=== PATIENT | female | born 1990 | race Hispanic/Latino ===

== ENCOUNTER 2019-05-15 17:53 | Inpatient (IN) | payer MEDICAID ==
[2019-05-15] MEDS ORDERED: ONDANSETRON INJ 4 MG/2 ML VIAL IV ONE (18:53)
[2019-05-15] MEDS ORDERED: SODIUM CHLORIDE 0.9% (FLUSH) 10 ML SYG IV PRN ×2 (18:53→22:07)
[2019-05-15] MEDS ORDERED: fentaNYL CITRATE INJ 50 MCG/ML AMP IV ONE ×2 (19:06→22:00)
[2019-05-15] MEDS ORDERED: PIPERACILLIN/TAZOBACTAM 4.5 GM in SODIUM CHLORIDE 0.9% 100ML 100 ML IVPB ONE (21:04)
--- NOTE | 2019-05-15 21:31 | ED.PDOC ---
History of Present Illness - General Chief Complaint: Abdominal Pain Stated Complaint: gall stones Time Seen by Provider: 05/15/19 18:53 Information Source: patient, RN notes reviewed, Vital Signs reviewed, old records Exam Limitations: no limitations - History of Present Illness Initial Comments: Patient is a 29-year-old female who presents with complaints of right upper quadrant abdominal pain. It started 24 hours ago and is worsened significantly. She was seen at the clinic today who sent her to the hospital for an ultrasound which showed that she had gallstones. The pain is sharp and stabbing in nature, it is worse when she eats, nothing makes it better. It is severe in intensity. It is constant but waxing and waning in intensity. The pain does not radiate. Patient denies any headache, dizziness, chest pain, shortness of breath, diarrhea. She does complain of nausea, but no vomiting. Abdominal Pain Onset Location: RUQ Pain Radiation: no radiation Quality: severe, sharpness, stabbing Timing/Duration: 7-24 hours Improving Factors: nothing Worsening Factors: eating Associated Symptoms: nausea/vomiting - Nausea only Review of Systems - Review of Systems Constitutional: States: see HPI. Denies: chills, fever EENTM: States: no symptoms reported. Denies: blurred vision, double vision Respiratory: States: no symptoms reported. Denies: cough, short of breath, stridor, wheezing Cardiology: States: no symptoms reported. Denies: chest pain, palpitations, syncope Gastrointestinal/Abdominal: States: see HPI, abdominal pain, nausea. Denies: constipation, diarrhea, vomiting Genitourinary: States: no symptoms reported. Denies: discharge, dysuria, frequency Musculoskeletal: States: no symptoms reported. Denies: back pain, joint pain, neck pain Skin: States: no symptoms reported. Denies: change in color, rash Neurological: States: no symptoms reported. Denies: headache, tingling, tremors, weakness Endocrine: States: no symptoms reported Hematologic/Lymphatic: States: no symptoms reported All other Systems: Reviewed and Negative Past Medical History (General) - Patient Medical History Hx Congestive Heart Failure: No Hx Diabetes: No Hx Renal Disease: No Hx Cancer: No Hx Hepatitis C: No Hx MRSA: No - Vaccination History Hx Tetanus, Diphtheria Vaccination: No Hx Influenza Vaccination: No Hx Pneumococcal Vaccination: No - Social History Hx Tobacco Use: No Hx Alcohol Use: No Hx Substance Use: No Hx Substance Use Treatment: No Hx Depression: No - Female History Patient is a Female of Child Bearing Age (10 -59 yrs old): No Hx Last Menstrual Period: 01/14/12 Patient : No Expected Date of Delivery:: 10/22/13 Family Medical History - Family History Mother Name: Dee Tripp Age (years): 50 Living Status: Still Living Hx Family Asthma: No Hx Family Congestive Heart Failure: No Hx Family Hypertension: Yes Hx Family Stroke: No Hx Family Diabetes: No Hx Family Cancer: No Father Name: Ang Cardoza Age (years): 48 Living Status: Still Living Hx Family Hypertension: Yes Hx Family Diabetes: Yes - aunt Hx Family Cancer: Yes - aunt, grandmother Sister Name: Romi Age (years): 27 Living Status: Still Living Hx Family Asthma: No Hx Family Congestive Heart Failure: No Hx Family Hypertension: No Hx Family Stroke: No Hx Family Diabetes: No Hx Family Cancer: No Hx Family;Other: Rheumatoid Arthritis Brother Name: Ang Cardoza Jr. Age (years): 29 Living Status: Still Living Hx Family Asthma: No Hx Family Congestive Heart Failure: No Hx Family Hypertension: No Hx Family Stroke: No Hx Family Diabetes: No Hx Family Cancer: No Physical Exam - Physical Exam General Appearance: Alert, Anxious, Obvious distress, Obese, Well Developed, Well Groomed, Well Hydrated, Well Nourished Eyes, Ears, Nose, Throat Exam: PERRL/EOMI, normal ENT inspection, pharynx normal Neck: non-tender, full range of motion, supple Respiratory: chest non-tender, lungs clear, normal breath sounds, no respiratory distress Cardiovascular/Chest: normal peripheral pulses, regular rate, rhythm, no edema, no gallop, no murmur Peripheral Pulses: No deficit Gastrointestinal/Abdominal: normal bowel sounds, soft, tenderness - Right upper quadrant Back Exam: normal inspection, no CVA tenderness, no vertebral tenderness Extremity: normal range of motion, non-tender, normal inspection, no pedal edema, no calf tenderness 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 05/15/19 21:33 Patient's pain has improved after pain medication. I have discussed with her the need for definitive operative care. She voices understanding and agreement with admission for operative intervention. I have discussed this patient with Dr. De Leon, and he agrees to see her in consultation and plans on taking her to the OR tomorrow. I have started antibiotics on this patient. I have also discussed this patient with Dr. Suleiman Moreno and he accepts the patient for admission. Porfirio Gillis M.D. #[id number] - Results/Orders Results/Orders: 05/15/19 18:53 IV Care:Saline Lock per Protoc QSHIFT Sodium Chloride 0.9% (Flush) [Saline Flush Syringe] 10 ml IV PRN PRN 05/15/19 19:00 EKG STAT 05/15/19 21:04 Piperacillin/Tazobactam [Zosyn] 4.5 gm Sodium Chloride 0.9% 100Ml [NS (NACL 0.9%) 100ml] 100 ml IVPB ONCE 05/15/19 21:30 Piperacillin/Tazobactam [Zosyn] 3.375 gm Sodium Chloride 0.9% 100Ml [NS (NACL 0.9%) 100ml] 100 ml IVPB Q8H Laboratory Results - last 24 hr 05/15/19 05/15/19 05/15/19 19:05 19:05 19:05 WBC 6.3 RBC 4.44 Hgb 14.7 Hct 42.8 MCV 96.3 MCH 33.2 H MCHC 34.4 RDW 13.1 Plt Count 260 MPV 9.8 Absolute Neuts (auto) 5.00 Absolute Lymphs (auto) 0.80 L Absolute Monos (auto) 0.30 Absolute Eos (auto) 0.10 Absolute Basos (auto) 0.00 Neutrophils % 79.6 H Lymphocytes % 13.4 L Monocytes % 5.0 Eosinophils % 1.6 Basophils % 0.4 Sodium 139 Potassium 3.9 Chloride 100 L Carbon Dioxide 30 Anion Gap 12.9 BUN 8 Creatinine 0.68 BUN/Creatinine Ratio 11.8 Random Glucose 95 Serum Osmolality 275.7 Calcium 9.8 Total Bilirubin 2.0 H Direct Bilirubin 1.3 H Indirect Bilirubin 0.7 AST 234 H ALT 160 H Alkaline Phosphatase 355 H Serum Total Protein 7.9 Albumin 3.9 Lipase Serum HCG, Qual Urine Color Urine Appearance Urine pH Ur Specific [place] Urine Protein Urine Glucose (UA) Urine Ketones Urine Blood Urine Nitrite Urine Bilirubin Urine Urobilinogen Ur Leukocyte Esterase Urine RBC Urine WBC Ur Epithelial Cells Urine Bacteria 05/15/19 05/15/19 05/15/19 19:05 19:05 20:10 WBC RBC Hgb Hct MCV MCH MCHC RDW Plt Count MPV Absolute Neuts (auto) Absolute Lymphs (auto) Absolute Monos (auto) Absolute Eos (auto) Absolute Basos (auto) Neutrophils % Lymphocytes % Monocytes % Eosinophils % Basophils % Sodium Potassium Chloride Carbon Dioxide Anion Gap BUN Creatinine BUN/Creatinine Ratio Random Glucose Serum Osmolality Calcium Total Bilirubin Direct Bilirubin Indirect Bilirubin AST ALT Alkaline Phosphatase Serum Total Protein Albumin Lipase 21 L Serum HCG, Qual Negative Urine Color Yellow Urine Appearance Cloudy Urine pH 5.5 Ur Specific [place] 1.025 Urine Protein Negative Urine Glucose (UA) Negative Urine Ketones Negative Urine Blood Trace-lysed H Urine Nitrite Negative Urine Bilirubin Moderate Urine Urobilinogen 1.0 Ur Leukocyte Esterase Negative Urine RBC 0 Urine WBC 1-3 Ur Epithelial Cells 5-10 Urine Bacteria 1+ Ultrasound shows stones in the gallbladder without distention or pericholecystic fluid. The common bile duct is 6.7 mm. Departure - Departure Clinical Impression: Cholecystitis, Elevated liver function tests Time of Disposition: 21:37 Disposition: Admit Patient Condition: Good Departure Forms: Patient Portal Self Enrollment Referrals: PAT COOPER,MAHNAZ Thomson [Primary Care Provider] - 1-2 Weeks Decision To Admit - Decistion To Admit Decision to Admit Reason: Admit from ER Decision to Admit Date: 05/15/19 Decision to Admit Time: 20:40
--- NOTE | 2019-05-15 21:53 | HP ---
CHIEF COMPLAINT: Abdominal pain from gallstones. HISTORY OF PRESENT ILLNESS: Ms. Cardoza is a 29-year-old female who was seen in the Urgent Care last week with right upper quadrant abdominal pain. A sonogram of her abdomen was ordered as an outpatient and that study was done this morning. The report was called to the nurse practitioner at the Urgent Care and the message was relayed to the patient that she had lots of gallstones. The patient was instructed to come to the Emergency Room if she started having severe abdominal pain. Within about four hours, the patients had significantly worsened pain in the right upper quadrant with nausea and vomiting. Because of the GI distress and the ongoing pain that would not stop, she decided to come to the Emergency Room for evaluation. In the Emergency Room, her liver enzymes are over 100 and she was found to have a positive Ferraro's sign on examination in the ER. The patient was given some IV fentanyl which initially helped with her pain, but the pain has since returned. The surgeon, Dr. Knight, was contacted by the Emergency Room physician and the decision was made to admit the patient for IV antibiotics tonight and to get her prepared for surgery tomorrow morning. The plan will be to do a laparoscopic cholecystectomy with intraoperative cholangiogram. The patient is aware of the plan and is willing to move in that direction starting tonight. REVIEW OF SYSTEMS: CONSTITUTIONAL: No recent fevers, chills. HEENT: No head congestion or sore throat. CARDIOVASCULAR: No chest pains or palpitations. PULMONARY: No shortness of breath or cough. GASTROINTESTINAL: As above, no constipation, diarrhea, melena or reflux. GENITOURINARY: No dysuria or hematuria. NEUROLOGIC: No headache or dizziness. HEMATOLOGIC: No bleeding tendencies or easy bruising. PAST MEDICAL HISTORY: Negative. PAST SURGICAL HISTORY: 1. section. 2. Bilateral tubal ligation. CURRENT MEDICATIONS: None. ALLERGIES: NO KNOWN DRUG ALLERGIES. SOCIAL HISTORY: She smokes cigarettes, but she does not consume alcohol or use illicit drugs. FAMILY HISTORY: Noncontributory. PHYSICAL EXAMINATION: VITAL SIGNS: Temperature 99.8. Pulse 115. Blood pressure 105/60. Pulse oximetry 99% on room air. GENERAL: The patient is crouched next to the bed in a squatted position due to the pain. She withers back and forth and grimaces with pain during the interview. HEENT: No scleral icterus. Oropharynx clear. Mucous membranes are dry. NECK: Supple. No adenopathy. CHEST: Clear to auscultation. CARDIOVASCULAR: Regular rate and rhythm without murmur. ABDOMEN: Soft, nondistended. It is obese. She does have right upper quadrant abdominal pain and I do not appreciate a Ferraro's sign, however, she was given two doses of fentanyl before I saw her. NEUROLOGIC: No focal motor or sensory deficits. LABORATORY: White count 6.3, hemoglobin 14.7, hematocrit 42.8, platelet count 260. Sodium 139, potassium 3.9, chloride 100, carbon dioxide 30, BUN 8, creatinine 0.68, total bilirubin 2, AST 234, ALT 160, lipase 21. Serum test negative. Urinalysis negative. RADIOLOGY: Abdominal ultrasound shows numerous gallstones, slightly dilated common bile duct at 6.7 mm. ASSESSMENT: 1. Acute cholecystitis, failed outpatient treatment. PLAN: The patient will be admitted to the hospital. She was started on IV Zosyn in the Emergency Room and that will be continued. She of course if NPO. I will use morphine for pain control and Zofran for nausea and vomiting. Surgical consult from will be obtained first thing in the morning with anticipation that she would have her gallbladder removed on 05/16/19. It is likely she will need to be in the hospital for a night or two afterwards given the higher elevation of her liver enzymes, however, we will repeat those in the morning and make an assessment at that time and see how her cholangiogram looks and what Dr. Knight's impression of the case is after surgery. #[id number] [facility]
[2019-05-15] MEDS ORDERED: PIPERACILLIN/TAZOBACTAM 3.375 GM VIAL IVPB ONE (22:02)
[2019-05-15] MEDS ORDERED: SODIUM CHLORIDE 0.9% 100ML 100 ML IVPB ONE (22:02)
[2019-05-15] MEDS: PIPERACILLIN/TAZOBACTAM 3.375 GM in SODIUM CHLORIDE 0.9% 100ML 100 ML IVPB SCH (22:06)
[2019-05-15] MEDS ORDERED: ONDANSETRON INJ 4 MG/2 ML VIAL IV PRN (22:07)
[2019-05-15] MEDS ORDERED: IV SET AND CAP CHANGE INJ INJ SCH (22:30)
--- NOTE | 2019-05-15 22:46 | RAD ---
EXAM DESCRIPTION: Chest,1 View CLINICAL HISTORY: 29 years Female epigastric pain COMPARISON: None. FINDINGS: The cardiomediastinal silhouette appears unremarkable. No consolidating infiltrates or pleural effusions. No pneumothorax. IMPRESSION: No acute abnormality is identified. * Electronically signed by: Lynn Moncada MD 05/15/2019 10:44 PM [facility]
[2019-05-16] MEDS: MORPHINE SULFATE INJ 10 MG/ML VIAL IV PRN ×5 (00:11→22:25)
[2019-05-16] MEDS: LACTATED RINGERS 1,000 ML IVS PRN ×3 (00:11→23:20)
[2019-05-16] MEDS ORDERED: SODIUM CHLORIDE 0.9% 100ML 100 ML IVPB ONE ×3 (04:56→19:07)
[2019-05-16] MEDS ORDERED: PIPERACILLIN/TAZOBACTAM 3.375 GM VIAL IVPB ONE ×3 (04:56→19:07)
[2019-05-16] MEDS: PIPERACILLIN/TAZOBACTAM 3.375 GM in SODIUM CHLORIDE 0.9% 100ML 100 ML IVPB SCH ×3 (05:04→21:21)
[2019-05-16] MEDS ORDERED: LACTATED RINGERS 1,000 ML ONE (08:33)
[2019-05-16] MEDS ORDERED: BUPIVACAINE 0.5% W/EPI 30 ML VIAL INJ ONE ×2 (13:57→16:28)
[2019-05-16] MEDS ORDERED: KETAMINE HCL 100 MG/ML VIAL ONE (16:19)
[2019-05-16] MEDS ORDERED: fentaNYL CITRATE INJ 50 MCG/ML AMP ONE (16:20)
[2019-05-16] MEDS ORDERED: ROCURONIUM BROMIDE 10 MG/ML VIAL ONE (16:20)
[2019-05-16] MEDS ORDERED: MIDAZOLAM INJ 2 MG/2 ML VIAL ONE (16:20)
[2019-05-16] MEDS ORDERED: SUGAMMADEX SODIUM 200 MG/2 ML VIAL IV ONE (16:27)
[2019-05-16] MEDS ORDERED: ELECTROLYTE-A 1,000 ML IVS ONE (16:27)
[2019-05-16] MEDS ORDERED: MEPERIDINE HCL 50 MG/ML VIAL ONE (19:08)
--- NOTE | 2019-05-16 19:31 | OP ---
DATE OF PROCEDURE: 05/16/19 PREOPERATIVE DIAGNOSIS: 1. Acute cholecystitis. POSTOPERATIVE DIAGNOSIS: 1. Acute cholecystitis. PROCEDURE: 1. Laparoscopic cholecystectomy with cholangiogram, difficult case modified with extreme inflammation and added difficulty of the case. SURGEON: Serg Knight MD. ANESTHESIA: General and local. FINDINGS: The gallbladder was tense, thick walled. The cystic duct was extremely large with no tapering at the common bile duct. Cholangiogram revealed normal appearing anatomy without flow through the distal duct into the duodenum. No obvious meniscus, but her labs indicate likely common duct stone. ESTIMATED BLOOD LOSS: Minimal. SPECIMEN: Gallbladder. The cystic duct needed to be ligated with an Endoloop. COMPLICATIONS: None. PLAN: Admit. MRCP. Followup liver function tests and likely refer for ERCP. INDICATION: As stated. PROCEDURE: General anesthesia was induced. The patient was prepped and draped in sterile fashion. Marcaine 0.5% with epinephrine was used at all incision sites. While maintaining upward traction, a david was made near the base of the umbilicus. Veress needle was introduced. There was free flow of fluid into the peritoneal cavity which was insufflated to an appropriate level with CO2 gas. The 5 mm trocar was placed followed by the camera. There was no evidence of bleeding or bowel injury. The patient was positioned and subxiphoid and lateral ports were placed. The gallbladder fundus was identified. It was very thick walled. We were unable to grasp it. I needed to put an otomy in it and aspirate the gallbladder out to decompress it so we could grasp it with the grasper and retract it and dissect the infundibulum was grasped. We dissected the peritoneum lateral and medial structures and we were unable to dissect out the duct. I was able to dissect out the artery, but the duct itself was extremely large and dissected down, it appeared first that the duodenum might be stuck to it, but indeed this was adjunctive to the common bile duct. There was no tapering. At this point, it was decided rather than open, we would do a top- down dissection and get a better view of the anatomy, so we did that and came from top down. I got one otomy into the gallbladder, just retrieved the stones, none were missing. As we got down to the infundibulum, the anatomy was still clear as we thought before. I made a hole in the gallbladder medially and put in a cholangiogram and was able with a little bit of extravasation to get a good cholangiogram, but on multiple attempts, there was no evidence of flow into the duodenum, consistent with the obstructing distal common duct stone. We then ligated the gallbladder that we knew that we had at least 2 cm of distal gallbladder before the common bile duct. It was ligated and removed in the EndoCatch bag. We then used the 0 Endoloop to ligate the cystic duct stump. This was done successfully. The area was irrigated. There was no bleeding, no evidence of bile leakage. The fossa was examined. It was also hemostatic. At this point, all the irrigant was clear. We made sure all the spilled stones were removed. There was no evidence of additional stones. The subxiphoid fascia was then closed with 0 Vicryl using the suture passer. It was airtight and non-bleeding. The remaining trocars were removed. There was no bleeding from the trocar sites. The wounds were irrigated and closed with Monocryl. Dressings were applied. The patient was awakened and taken to Recovery in stable condition. Again, we will get an MRCP as well as morning labs to confirm the presence of common bile duct stone and likely referral for ERCP. #[id number] [facility]
[2019-05-17] MEDS: MORPHINE SULFATE INJ 10 MG/ML VIAL IV PRN ×2 (03:32→08:38)
[2019-05-17] MEDS ORDERED: PIPERACILLIN/TAZOBACTAM 3.375 GM VIAL IVPB ONE ×3 (04:20→19:35)
[2019-05-17] MEDS ORDERED: SODIUM CHLORIDE 0.9% 100ML 100 ML IVPB ONE ×3 (04:20→19:35)
[2019-05-17] MEDS: PIPERACILLIN/TAZOBACTAM 3.375 GM in SODIUM CHLORIDE 0.9% 100ML 100 ML IVPB SCH ×3 (04:42→21:11)
[2019-05-17] MEDS ORDERED: KETOROLAC TROMETHAMINE INJ 30 MG/ML VIAL ONE (07:00)
[2019-05-17] MEDS ORDERED: PROPOFOL 200 MG/20 ML VIAL IV ONE (07:00)
[2019-05-17] MEDS ORDERED: DEXAMETHASONE INJ 10 MG/ML VIAL ONE (07:00)
[2019-05-17] MEDS ORDERED: MAGNESIUM SULFATE INJ 1 GM/2 ML VIAL ONE (07:00)
[2019-05-17] MEDS ORDERED: raNITIdine HCL INJ 25 MG/ML VIAL ONE (07:00)
[2019-05-17] MEDS ORDERED: SODIUM CHLORIDE 0.9% 50 ML VIAL ONE (07:00)
[2019-05-17] MEDS ORDERED: LIDOCAINE 1% 10 ML VIAL INJ ONE (07:00)
--- NOTE | 2019-05-17 07:12 | RAD ---
EXAM: FL LESS THAN 1 HOUR DATE: 05/16/2019 Ordering provider: Serg Knight MD CLINICAL INDICATION: LAP TAMI WITH IOC COMPARISON: 05/15/2019 abdominal ultrasound FINDINGS: 2 intraoperative fluoroscopic images were submitted for review. Images demonstrate opacification of the common bile duct. No definite filling defects or strictures identified. Please refer to operative report for details. Fluoroscopy time: 38 seconds IMPRESSION: Intraoperative fluoroscopy. Electronically signed by: Alex Soliz MD 05/17/2019 7:07 AM [facility]
--- NOTE | 2019-05-17 11:11 | MRI ---
EXAM DESCRIPTION: Abdomen CLINICAL HISTORY: 29 years Female, MRCP abdominal pain COMPARISON: Ultrasound May 15, 2019 TECHNIQUE: Multiplanar, multisequence MR images of the abdomen are obtained without IV gadolinium contrast using MRCP imaging protocol. Three-D MIP reconstructed images of the biliary ductal system are obtained. FINDINGS: Surgical absence of the gallbladder. Increased T2 signal in the gallbladder fossa is seen with focal area of fluid signal in the gallbladder fossa measuring 17 x 14 mm. No intra or extrahepatic biliary ductal dilatation. No filling defects in the common bile duct are seen. The distal common bile duct measures 6 mm. No pancreatic duct dilatation or pancreas divisum is identified. The remnant cystic duct is unremarkable. Liver is mildly enlarged at 17.3 cm. No focal hepatic lesion. The spleen, pancreas, adrenal glands, and kidneys are unremarkable. No pathologic lymphadenopathy. Bilateral basilar infiltrates are seen in the visualized lung bases. Small amount of free intraperitoneal air is seen over the right lobe of the liver. IMPRESSION: Postsurgical changes from recent cholecystectomy are seen. Increased T2 signal and small amount of fluid in the gallbladder fossa could represent postop hematoma or seroma. No significant ascites is seen to suggest biliary leak. No MRCP evidence of choledocholithiasis or biliary tract obstruction. Bilateral lower lobe atelectasis versus developing pneumonia or aspiration. Electronically signed by: Marvin David MD 05/17/2019 11:09 AM [facility]
[2019-05-17] MEDS ORDERED: ACETAMINOPHEN W/COD #3 TAB 1 EA TAB PO PRN (14:09)
[2019-05-17] MEDS ORDERED: IBUPROFEN 200 MG TAB ONE (14:20)
[2019-05-17] MEDS ORDERED: IBUPROFEN 200 MG TAB PO PRN (14:23)
[2019-05-17] MEDS: traMADol HCL 50 MG TAB PO PRN ×2 (15:00→21:11)
--- NOTE | 2019-05-17 16:48 | PN ---
SUPERVISING PHYSICIAN: Eb Kirk MD DATE: 05/16/19 SUBJECTIVE: The patient has just come back from surgery. She is fairly lethargic. Her family is at the beside. She has no complaints at this time. I discussed with her family our plans over the next several days. OBJECTIVE: VITAL SIGNS: Temperature 96.7, heart rate 70, blood pressure 97/63, respiratory rate 19, oxygen saturation 95% on a face vent. RESPIRATORY: Essentially clear to auscultation bilaterally. CARDIAC: Regular rate and rhythm. ABDOMEN: Soft, nondistended. It is tender, especially along the epigastric and right upper quadrant. Bowel sounds are absent. She does have laparoscopic incision just to the epigastric area as well as to the right upper quadrant, with Steri-Strips. There are no signs or symptoms of problems, no excess bleeding. NEURO: She is lethargic, she opens her eyes. She answers simple questioning. LABORATORY: Preoperative laboratory was WBC of 4.9 with hemoglobin of 13.3 and hematocrit of 39.5. Chemistries were basically within normal limits. Bilirubin was elevated at 2.8 with an AST of 180, ALT of 162, alkaline phosphatase of 311. Amylase 41, lipase 22. All other labs and films have been reviewed via the EMR. ASSESSMENT: 1. Acute cholecystitis failed outpatient treatment status post cholecystectomy, postoperative day #0. 2. Elevated liver enzymes most likely secondary to #1. PLAN: We will continue present supportive care. Operative issues will be per Dr. Knight. He has ordered an MRCP for in the morning depending on her lab work as well as the results of that test, we may or may not transfer her to another facility for an ERCP. At this point, we will advance her diet as tolerated. Dr. Knight has covered her for her pain medication. We will continue to monitor closely and follow as needed. #[id number] [facility]
[2019-05-18 04:00] VITALS: O2SAT 96
[2019-05-18] MEDS ORDERED: PIPERACILLIN/TAZOBACTAM 3.375 GM VIAL IVPB ONE (04:45)
[2019-05-18] MEDS ORDERED: SODIUM CHLORIDE 0.9% 100ML 100 ML IVPB ONE (04:45)
[2019-05-18] MEDS: PIPERACILLIN/TAZOBACTAM 3.375 GM in SODIUM CHLORIDE 0.9% 100ML 100 ML IVPB SCH (05:12)
[2019-05-18 11:26] VITALS: BP 121/75; TEMP 98.1
--- NOTE | 2019-05-18 13:56 | PN ---
SUPERVISING PHYSICIAN: Eb Kirk MD DATE: 05/17/19 SUBJECTIVE: The patient is sitting in bed. She has complained of pain off and on all day except she does not like to take pain medications. She denies any shortness of breath, nausea or vomiting. OBJECTIVE: VITAL SIGNS: Temperature 97.1. Heart rate 68. Blood pressure 111/64. Respiratory rate 16. O2 saturation 92% on 2 liters nasal cannula. RESPIRATORY: Essentially clear to auscultation bilaterally. CARDIAC: Regular rate and rhythm. ABDOMEN: Soft, nondistended. It is mildly tender, especially in the epigastric and right upper quadrant areas. There is no rebound tenderness. Her dressings to her laparoscopic surgical incisions are dry and intact. There are no signs or symptoms of bleeding or other problems. NEUROLOGIC: Awake, alert and oriented x3. LABORATORY: WBCs 6.9, hemoglobin 12.7, hematocrit 37.1. Electrolytes are mostly within normal limits except calcium slightly low at 8.1. Bilirubin is 4.1. AST 171, ALT 193, alkaline phosphatase 377. Total protein 6.2. RADIOLOGY: Her MRCP shows no MRCP evidence of choledocholithiasis or biliary tract obstruction. All other labs and films have been reviewed via the EMR. ASSESSMENT: 1. Acute cholecystitis failed outpatient treatment status post cholecystectomy, postoperative day #1. 2. Elevated liver enzymes most likely secondary to #1. PLAN: We will continue present supportive care. Operative issues will be per Dr. Serg Knight. His plan after seeing the results of the MRCP was to keep her overnight and to followup with GI specialist tomorrow. He also wanted a repeat of her bilirubin. If the bilirubin did go up, he will most likely transfer her for an ERCP. At this point, he wants us to advance her diet as tolerated and to increase her activity as tolerated. The patient has not wanted to get out of bed, so we have encouraged her to do so. I explained to her about postoperative complications of not getting up and moving including pneumonia. If she does not get up and walk the halls more frequently, we will have to order some more aggressive pulmonary hygiene. Otherwise, we will continue to monitor the patient closely and follow as needed. #[id number] [facility]
--- NOTE | 2019-05-23 14:03 | DS ---
SUPERVISING PHYSICIAN: Eb Kirk MD DISCHARGE DIAGNOSIS: 1. Acute cholecystitis failed outpatient treatment status post cholecystectomy, postoperative day #2. 2. Elevated liver enzymes most likely secondary to #1. HISTORY OF PRESENT ILLNESS: This is a 29-year-old female patient who was seen in the Urgent Care the previous week with right upper quadrant abdominal pain. A sonogram of her abdomen was ordered as an outpatient and that study was done the morning of her admission. The message was relayed that the patient had lots of gallstones. The patient was instructed to come to the Emergency Room if she started having severe abdominal pain. Within about four hours, the patient had significantly worsened pain in the right upper quadrant with nausea and vomiting. She came to the Emergency Room for evaluation. In the Emergency Room, her liver enzymes elevated and she was found to have a positive Ferraro's sign on examination in the ER. The patient was given some IV fentanyl which initially helped with her pain, but the pain has since returned. The general surgeon, Dr. Knight, was contacted by the Emergency Room physician and the decision was made to admit the patient for IV antibiotics and prepare for surgery the following day. Dr. Knight was to do a laparoscopic cholecystectomy with intraoperative cholangiogram. The patient is aware of the plan and was willing to be admitted for the operative procedure. HOSPITAL COURSE: The patient was admitted to the Floor and was made NPO. Morphine was used for pain control and Zofran for nausea and vomiting. Dr. Knight was consulted for the cholecystectomy the following morning as well as continuation of antibiotics. The patient was taken to surgery the following afternoon and although her surgery was quite long due to the nature of her gallbladder, there were no intraoperative complications. She was discharged from the Recovery Room and brought to the Floor where she was continued on antibiotics. Dr. Knight was quite concerned that her bilirubin elevated and an MRCP was ordered for the following morning. He was going to contact a GI specialist in regard to the results as well as her elevated bilirubin. He initially felt she would have to be transferred to have an ERCP. He did advance her diet as tolerated. The patient was aware of the plan. The nurses encouraged the patient to increase her activity as well as walking. Initially the patient was reluctant to move much because of her pain. She also does not like to take pain medications. She had had to have extensive teaching on pain medications as well as getting up and moving around. This morning, it was felt that the ERCP was not emergent and that she would need to see Dr. Knight in close followup to further review her clinical situation. She will be discharged home in stable condition this morning. LABORATORY: CBC was basically within normal limits throughout her stay with WBC on discharge of 7.5, hemoglobin 12.3, hematocrit 37.2. Her electrolytes were basically stable. She did have a low potassium at 3.4 which required supplementation. Her BUN and creatinine were stable at 7 and 0.58. Initially, her bilirubin was 2.8 and went up to as high as 4.1 postoperatively, but the next day, it was 2.5 with a direct bilirubin of 1.7. AST 234 on admission and on discharge was 120. ALT was 160 on admission and went up to as high as 193 and is down to 175 today. Alkaline phosphatase on admission was 365, went up as high as 377 and is now 352. Albumin is low at 2.7. Lipase 21, amylase 41. Urinalysis was unremarkable. RADIOLOGY: Her MRCP showed post surgical changes from recent cholecystectomy, increased T2 signal and small amount of fluid in the gallbladder, also could represent postoperative hematoma or seroma. No significant ascites seen to suggest biliary leak. No MRCP evidence of cholelithiasis or biliary tract obstruction. Bilateral lower lobe atelectasis versus developing pneumonia or aspiration. Her chest x-ray on admission showed no acute abnormality. DISCHARGE PLAN: The patient will be discharged home in stable condition. She is to resume her previous diet and increase her activity as tolerated. Incisional care is per Dr. Knight. She is to followup with Pat Colby and her primary care physician within one to two weeks. She has a followup appointment with Dr. Serg Knight on 05/22/19. She also has received tramadol on discharge for pain medication. Dr. Knight felt that she did not need to be on antibiotics. She is to return to the hospital or followup with Dr. Knight for any problems or complications. DISCHARGE MEDICATIONS: 1. Tramadol. #[id number] MTDD
== END 2019-05-18 13:26 | disposition home or self-care (01) | DRG 418 ==
LOC: ER 17:53 → MS 21:52 → OBSVTOIN 21:52
PROVIDERS: ADMIT Family Medicine; ATTEND Nurse Practitioner Acute Care
PROC: BF131ZZ Fluoroscopy of Gallbladder and Bile Ducts using Low Osmolar Contrast (ICD-10-PCS; 2019-05-16)
PROC: 0FT44ZZ Resection of Gallbladder, Percutaneous Endoscopic Approach (ICD-10-PCS; principal; 2019-05-16 14:56)
DX: K80.63 Calculus of gallbladder and bile duct with acute cholecystitis with obstruction (principal); Z68.41 Body mass index [BMI] 40.0-44.9, adult; R74.8 Abnormal levels of other serum enzymes; E87.6 Hypokalemia; F17.210 Nicotine dependence, cigarettes, uncomplicated; E66.9 Obesity, unspecified

== ENCOUNTER → 2020-01-04 | Outpatient (CLI) | payer MEDICAID ==
--- NOTE | 2020-01-04 14:24 | RAD ---
Study: 3 Views of the Left Foot. Indication: PAIN IN LEFT FOOT Comparison: None. Impression: Subtle transverse lucency at the base of fifth metatarsal concerning for a nondisplaced fracture. Correlation with point tenderness recommended. No advanced osteoarthritis. Electronically signed by: Candelario Selby MD 01/04/2020 2:22 PM CDT
== END ==
LOC: RAD 13:58
PROVIDERS: ATTEND Family Medicine
DX: M79.672 Pain in left foot (principal); M89.9 Disorder of bone, unspecified